=== PATIENT | male | born 2000 | race Caucasian/White ===

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

== ENCOUNTER 2018-05-10 20:42 | Emergency (ER) | payer BC, OTHER ==
[2018-05-10 21:02] VITALS: BP 121/79
--- NOTE | 2018-05-10 21:45 | UC ---
Laceration HPI - HPI Summary HPI Summary: Got a cut on his R index knuckle after closing a garage door. Feels its bleeding a lot and its a flap. able to move all joints of his R hand. denies fever, joint swelling. - History Of Current Complaint Chief Complaint: UCUpperExtremity Stated Complaint: FINGER LACERATION Time Seen by Provider: 05/10/18 21:29 Hx Obtained From: Patient Pain Intensity: 1 Pain Scale Used: 0-10 Numeric - Allergies/Home Medications Allergies/Adverse Reactions: Allergies Allergy/AdvReac Type Severity Reaction Status Date / Time No Known Allergies Allergy Verified 05/10/18 21:02 Home Medications: Home Medications Acetaminophen TAB* [Tylenol TAB*] 1,000 mg PO DAILY 05/10/18 [History Confirmed 05/10/18] PMH/Surg Hx/FS Hx/Imm Hx Previously Healthy: Yes - Surgical History Surgical History: Yes Surgery Procedure, Year, and Place: kidney surgery. right hip surgery - Family History Known Family History: Positive: Hypertension - Social History Alcohol Use: None Substance Use Type: None Smoking Status (MU): Light Every Day Tobacco Smoker Amount Used/How Often: 5-10 cigarettes per day Review of Systems All Other Systems Reviewed And Are Negative: Yes Constitutional: Positive: Negative Skin: Positive: Other - R index finger on joint has a laceratino. Negative: Bruising Motor: Negative: Weakness Neurovascular: Negative: Decreased Sensation Physical Exam Triage Information Reviewed: Yes Appearance: Well-Appearing, Other: - reports feeling 'woozy' after seeing his finger so we laid him down. Vital Signs: Initial Vital Signs Temp 99.1 F 05/10/18 20:54 Pulse 93 05/10/18 20:54 Resp 16 05/10/18 20:54 BP 121/79 05/10/18 20:54 Pulse Ox 98 05/10/18 20:54 Vital Signs Reviewed: Yes Musculoskeletal: Positive: Strength Intact, ROM Intact, No Edema Skin: Positive: Other - small flap laceration and PIP. he was resistant to sutures so we used dermabond to help alleviate his anxiety and improve the ROM when healing. he tolerated this well Laceration Course/Dx - Course/Dx Course Of Treatment: flap laceration at PIP R joint. bleeding was able to be controlled, dermabond used since he was quite anxious about sutures. dermabond also helped w/ the type of laceration and site as it was a high movement area. pt tolerated well. up to date w/ vaccines. - Differential Dx - Laceration/Wound Differental Diagnoses: Abrasion, Abscess, Laceration - Diagnosis Provider Diagnosis: Laceration Discharge - Sign-Out/Discharge Documenting (check all that apply): Patient Departure All imaging exams completed and their final reports reviewed: No Studies - Discharge Plan Condition: Good Disposition: HOME Patient Education Materials: Laceration (ED) Forms: *Work Release Referrals: Mary Ann Humphreys MD [Primary Care Provider] - Additional Instructions: if area becomes red and swollen please return. - Billing Disposition and Condition Condition: GOOD Disposition: Home
--- NOTE | 2018-05-12 07:37 | UC ---
Course/Dx - Diagnoses Provider Diagnoses: Laceration Discharge - Sign-Out/Discharge Documenting (check all that apply): Post-Discharge Follow Up All imaging exams completed and their final reports reviewed: No Studies - Discharge Plan Condition: Good Disposition: HOME Patient Education Materials: Laceration (ED) Forms: *Work Release Referrals: Mary Ann Humphreys MD [Primary Care Provider] - Additional Instructions: if area becomes red and swollen please return. - Billing Disposition and Condition Condition: GOOD Disposition: Home
== END 2018-05-10 22:40 | disposition home or self-care (01) ==
LOC: UCEAST 20:42
DX: S61.210A Laceration without foreign body of right index finger without damage to nail, initial encounter (principal); W23.0XXA Caught, crushed, jammed, or pinched between moving objects, initial encounter; Y92.59 Other trade areas as the place of occurrence of the external cause; F17.210 Nicotine dependence, cigarettes, uncomplicated
CPT/HCPCS: 12001; 99211; 99212; G0463

== ENCOUNTER 2018-09-05 20:22 | Emergency (ER) | payer BC ==
[2018-09-05 20:34] VITALS: BP 125/84
[2018-09-05] MEDS ORDERED: Acetaminophen TAB* 325 MG PO ONE (20:56)
--- NOTE | 2018-09-05 20:58 | UC ---
Laceration HPI - History Of Current Complaint Chief Complaint: UCLowerExtremity Stated Complaint: LEG LACERATION Time Seen by Provider: 09/05/18 20:51 Hx Obtained From: Patient Pain Intensity: 0 - Allergies/Home Medications Allergies/Adverse Reactions: Allergies Allergy/AdvReac Type Severity Reaction Status Date / Time No Known Allergies Allergy Verified 09/05/18 20:33 Home Medications: Home Medications NK [No Home Medications Reported] 09/05/18 [History Confirmed 09/05/18] PMH/Surg Hx/FS Hx/Imm Hx Previously Healthy: Yes - Deneis significant PMH - Surgical History Surgical History: Yes Surgery Procedure, Year, and Place: kidney surgery. right hip surgery - Family History Known Family History: Positive: Hypertension - Social History Occupation: Employed Full-time Lives: With Family Alcohol Use: None Substance Use Type: None Smoking Status (MU): Light Every Day Tobacco Smoker Type: eCigarettes Amount Used/How Often: 5 times When Did the Patient Quit Smoking/Using Tobacco: 3 days ago - Immunization History Most Recent Tetanus Shot: up to date Review of Systems All Other Systems Reviewed And Are Negative: Yes Physical Exam - Summary Physical Exam Summary: GENERAL APPEARANCE: Well developed, well nourished, alert and cooperative, and appears to be in no acute distress. CARDIAC: Normal S1 and S2. No S3, S4 or murmurs. Rhythm is regular. There is no peripheral edema, cyanosis or pallor. Extremities are warm and well perfused. Capillary refill is less than 2 seconds. Peripheral pulses intact. LUNGS: Clear to auscultation without rales, rhonchi, wheezing or diminished breath sounds. ABDOMEN: Positive bowel sounds. Soft, nondistended, nontender. No guarding or rebound. No masses or hepatosplenomegally. MUSKULOSKELETAL: ROM intact to all extremities. No joint erythema or tenderness. Normal muscular development. Normal gait. SKIN: Skin normal color, texture and turgor with no lesions or eruptions. Triage Information Reviewed: Yes Vital Signs: Initial Vital Signs Temp 100 F 09/05/18 20:28 Pulse 72 09/05/18 20:28 Resp 16 09/05/18 20:28 BP 125/84 09/05/18 20:28 Pulse Ox 98 09/05/18 20:28 Vital Signs Reviewed: Yes Procedures - Procedure Summary Procedure Summary: Procedure note: Laceration repair right calf Informed consent was obtained before procedure started and the appropriate timeout was taken. The area was prepped and draped in the usual sterile fashion. Local anesthesia was achieved using 1 ml of lidocaine 1% without epinephrine. The wound was copiously irrigated. The wound margins were brought into good alignment and 3 interrupted sutures were placed using 4-0 Ethilon. Total length of wound after repair was 1.5 cm. Estimated blood loss was minimal. A dressing was applied to the area. Anticipatory guidance, as well as standard post-procedure care was discussed with patient. Return precautions are given. The patient tolerated the procedure well without complications. Patient is to follow up in 10 days for suture removal and evaluation of the laceration. Laceration Course/Dx - Differential Dx - Laceration/Wound Differental Diagnoses: Foreign Body, Laceration - Diagnosis Provider Diagnosis: Laceration of right calf without complication Discharge - Sign-Out/Discharge Documenting (check all that apply): Patient Departure All imaging exams completed and their final reports reviewed: No Studies - Discharge Plan Condition: Stable Disposition: HOME Patient Education Materials: Care For Your Stitches (ED), Laceration (DC) Referrals: Mary Ann Humphreys MD [Primary Care Provider] - Additional Instructions: Leave the dressing that was applied in the clinic in place for the next 24 hours. Be sure to keep it clean and dry. After 24 hours, you may remove the dressing and shower and wash hands as normal. Do nut submerge the leg under water to prevent infection. Clean the wound with a mild soap and water at least once a day. Apply some antibiotic ointment and cover with a bandage. This should be changed at least once a day or any time the dressing becomes wet or soiled. Use acetaminophen (Tylenol) or ibuprofen (Advil, Motrin) according to directions as needed for pain. Sutures will need to be removed in 10 days. You may return here or with your primary care provider to have this done. Watch for signs of infection including fever greater than 100.5 F, severe pain not managed with pain medication, redness that spreads, swelling of the hand/ fingers, or pus draining from the wound. Seek immediate medical attention should any of these occur. - Billing Disposition and Condition Condition: STABLE Disposition: Home
[2018-09-05] MEDS ORDERED: Lidocaine 1%* 5 ML VIAL INJ ONE (21:01)
== END 2018-09-05 21:52 | disposition home or self-care (01) ==
LOC: UCEAST 20:22
DX: S81.811A Laceration without foreign body, right lower leg, initial encounter (principal); X58.XXXA Exposure to other specified factors, initial encounter; Y92.9 Unspecified place or not applicable; F17.210 Nicotine dependence, cigarettes, uncomplicated
CPT/HCPCS: 12001; 99211; A9270-GY; G0463